=== PATIENT | female | born 1990 | race Native Hawaiian/Other Pacific Islander ===

== ENCOUNTER 2016-05-01 23:36 | Emergency (ER) | payer OTHER ==
[~2016-05-01] VITALS: Ht 152.4 cm; Wt 113.4 kg
[2016-05-02 00:36] LABS: POTASSIUM 4.7 mmol/L (3.6-5.2); SODIUM 140 mmol/L (136-145)
[2016-05-02 00:58] LABS: PLATELET COUNT 342 K/uL (152-353)
[2016-05-02 01:31] VITALS: BP 148/88; TEMP 97.8
== END 2016-05-02 01:32 | disposition home or self-care (01) ==
LOC: ED 23:36
DX: M94.0 Chondrocostal junction syndrome [Tietze] (principal)
CPT/HCPCS: 36415; 80053; 81000; 82550; 84484; 85027; 86318; 96372; 99283; J1885

== ENCOUNTER 2017-12-18 15:31 | Outpatient (CLI) | payer BC | END 2017-12-18 19:26 | disposition home or self-care (01) | LOC: CT 15:31 | DX: S39.81XA Other specified injuries of abdomen, initial encounter (principal) | CPT/HCPCS: Q9963 ==

== ENCOUNTER 2018-05-02 13:36 | Outpatient (CLI) | payer BC ==
[~2018-05-02] VITALS: Ht 162.6 cm; Wt 107.0 kg
== END 2018-05-02 22:24 | disposition home or self-care (01) ==
LOC: INF 13:36
DX: E86.0 Dehydration (principal)
CPT/HCPCS: 96360; 96361

== ENCOUNTER 2019-09-28 16:03 | Outpatient (CLI) | payer BC, OTHER | END 2019-09-28 23:59 | disposition home or self-care (01) | LOC: RAD 16:03 | DX: U07.1 COVID-19 (principal) ==

== ENCOUNTER 2022-07-12 08:51 | Outpatient (CLI) | payer BC | END 2022-07-12 17:00 | disposition home or self-care (01) | LOC: CT 08:51 → US 08:51 → CT 17:00 | PROVIDERS: ATTEND Nurse Practitioner Family | DX: N20.2 Calculus of kidney with calculus of ureter (principal); N83.202 Unspecified ovarian cyst, left side ==